=== PATIENT | female | born 1945 ===

== ENCOUNTER 2017-10-11 08:22 | Day surgery (SDC) | payer MEDICARE, OTHER ==
[2016-09-01 06:53] VITALS: BMI 28.0
--- NOTE | 2017-10-11 09:48 | CP.SDSHP ---
Same Day Surgery H & P - History Proposed Procedure: colonoscopy Pre-Op Diagnosis: history of polyps - Allergies Allergies: Allergies No Known Allergies Allergy (Verified 09/01/16 06:52) - Physical Exam General Appearance: NAD Vital Signs: Vital Signs 10/11/17 08:46 Temperature 98.9 F Pulse Rate 78 Respiratory 19 Rate Blood Pressure 156/68 H O2 Sat by Pulse 98 Oximetry Mental Status: Alert & Oriented x3 Neuro: WNL Heart: WNL Lungs: WNL GI: WNL - {Optional Preform as Required} Abdomen: WNL - Impression Pt. Evaluated Today:Candidate for Anesthesia & Procedure: Yes - Date & Time Date: 10/11/17 Time: 09:48 Short Stay Discharge - Short Stay Discharge Admitting Diagnosis/Reason for Visit: HISTORY OF COLON POLYPS Disposition: HOME/ ROUTINE
[2017-10-11] MEDS ORDERED: Propofol 10 mg/ml Inj (20 ML) ONE (09:49)
[2017-10-11 10:45] VITALS: TEMP 98.5
[2017-10-11] MEDS ORDERED: Lactated Ringer's 500 ML IV SCH (10:45)
[2017-10-11 10:58] VITALS: O2SAT 100
[2017-10-11 11:12] VITALS: BP 135/73; PULSE 64; RESP 19
== END 2017-10-11 12:00 | disposition home or self-care (01) ==
LOC: C.ENDO 08:22
PROVIDERS: ATTEND Internal Medicine Gastroenterology
DX: D12.4 Benign neoplasm of descending colon (principal); Z90.49 Acquired absence of other specified parts of digestive tract; K64.1 Second degree hemorrhoids
CPT/HCPCS: 45380; 45385; 88305; J2704; J7120